=== PATIENT | male | born 1970 | race African-American/Black ===

== ENCOUNTER 2021-06-21 10:09 | Inpatient (IN) | payer OTHER, SELFPAY ==
[2021-06-21 10:44] LABS: #Monocytes 0.3 10x3/uL (0.0-1.1); %Basophils 0.5 % (0.0-2.0); %Eosinophils 0.4 % (0.0-6.0); %Lymphocytes 21.4 % (18.0-47.0); %Monocytes 5.9 % (0.0-10.0); %Neutrophils 71.6 % (40.0-75.0); Hemoglobin 13.3 g/dL (13.5-17.5); Mean Corpuscular HGB CONC 32.6 g/dL (32.0-36.0); Mean Corpuscular Hemoglobin 34.4 pg (27.0-33.0); Mean Corpuscular Volume 105.4 fl (81.2-95.1); Mean Platelet Volume 9.8 fl (7.4-10.4); Platelet Count 238 10x3/uL (150-450); RBC Distribution Width 12.2 % (11.5-14.5); Red Blood Cell (RBC) Count 3.87 10x6/uL (4.32-5.72); White Blood Cell (WBC) Count 5.6 10x3/uL (3.5-10.5)
[2021-06-21 11:11] LABS: ALT (SGPT) 55 U/L (8-55); AST (SGOT) 43 U/L (5-34); Albumin 3.8 g/dL (3.5-5.0); Alkaline Phosphatase 67 U/L (40-110); Anion Gap 14 mmol/L (10-20); BUN (Urea Nitrogen) 17 mg/dL (8.4-25.7); Bilirubin, Total 0.6 mg/dL (0.2-1.2); Calc. Creatinine Clearance 0 mL/min (70-130); Carbon Dioxide 26 mmol/L (22-29); Chloride 106 mmol/L (98-107); Globulin 2.5 g/dL (2.4-3.5); Glucose 110 mg/dL (70-105); Lipase 13 U/L (8-78); Potassium 4.8 mmol/L (3.5-5.1); Protein, Total 6.3 g/dL (6.0-8.3); Sodium 141 mmol/L (136-145)
[2021-06-21 11:49] LABS: Macrocytosis SLIGHT = 6-15 cells (100X) (0-5/hpf)
[2021-06-21 11:50] LABS: Platelet Morphology Comment Appears Adequate
[2021-06-21] MEDS ORDERED: Aspirin Chewable 81 MG TAB ONE (12:13)
[2021-06-21] MEDS ORDERED: Furosemide 40 MG TAB ONE (12:13)
[2021-06-21] MEDS ORDERED: Guaifenesin DM 100-10/5 ML UDCUP PO PRN (12:49)
[2021-06-21] MEDS ORDERED: Nicotine 14 MG PATCH TD SCH (13:00)
[2021-06-21 13:37] LABS: Magnesium 1.9 mg/dL (1.6-2.6)
[2021-06-21 13:40] LABS: Troponin I 0.049 ng/mL (< 0.028)
[2021-06-21] MEDS ORDERED: hydrALAZINE 20 MG/ML VIAL SLOW IVP PRN (13:55)
[2021-06-21] MEDS ORDERED: Labetalol HCl 100 MG/20 ML VIAL SLOW IVP PRN (13:55)
[2021-06-21 14:25] VITALS: BMI 25.1
[2021-06-21] MEDS: Furosemide 20 MG/2 ML VIAL SLOW IVP SCH (15:31)
[2021-06-21 18:03] LABS: Troponin I 0.045 ng/mL (< 0.028)
[2021-06-21] MEDS: Acetaminophen 325 MG TAB PO PRN (21:51)
[2021-06-22 04:31] LABS: #Eosinphils 0.1 10x3/uL (0.0-0.5); #Monocytes 0.4 10x3/uL (0.0-1.1); %Basophils 0.6 % (0.0-2.0); %Eosinophils 1.7 % (0.0-6.0); %Lymphocytes 36.5 % (18.0-47.0); %Monocytes 6.8 % (0.0-10.0); %Neutrophils 54.2 % (40.0-75.0); Hemoglobin 13.2 g/dL (13.5-17.5); Mean Corpuscular HGB CONC 32.8 g/dL (32.0-36.0); Mean Corpuscular Hemoglobin 34.4 pg (27.0-33.0); Mean Corpuscular Volume 104.7 fl (81.2-95.1); Mean Platelet Volume 10.3 fl (7.4-10.4); Platelet Count 264 10x3/uL (150-450); RBC Distribution Width 12.2 % (11.5-14.5); Red Blood Cell (RBC) Count 3.84 10x6/uL (4.32-5.72); White Blood Cell (WBC) Count 5.4 10x3/uL (3.5-10.5)
[2021-06-22 04:46] LABS: Anion Gap 16 mmol/L (10-20); BUN (Urea Nitrogen) 23 mg/dL (8.4-25.7); Calc. Creatinine Clearance 70 mL/min (70-130); Calcium 8.6 mg/dL (7.8-10.44); Carbon Dioxide 25 mmol/L (22-29); Chloride 104 mmol/L (98-107); Glucose 101 mg/dL (70-105); Magnesium 1.7 mg/dL (1.6-2.6); Potassium 4.4 mmol/L (3.5-5.1); Sodium 141 mmol/L (136-145)
[2021-06-22] MEDS: Furosemide 20 MG/2 ML VIAL SLOW IVP SCH ×2 (06:42→14:46)
[2021-06-22] MEDS: Aspirin 81 mg Enteric Coated Tablet PO SCH (08:09)
[2021-06-22] MEDS ORDERED: Lidocaine 1% PF 5 ML VIAL ONE (09:10)
[2021-06-22] MEDS ORDERED: Heparin 10,000 UNITS/ 10 ML VIAL ONE (09:11)
[2021-06-22] MEDS ORDERED: Nitroglycerin 50 MG/250 ML BOT 250 ML ONE (09:11)
[2021-06-22] MEDS ORDERED: Sodium Chloride 0.9% 1,000 ML ONE (09:12)
[2021-06-22] MEDS ORDERED: Adenosine 6 MG/2 ML VIAL ONE (09:12)
[2021-06-22] MEDS ORDERED: Verapamil 5 MG/2 ML VIAL ONE (09:12)
[2021-06-22] MEDS ORDERED: Bivalirudin 250 MG VIAL ONE (09:12)
[2021-06-22] MEDS ORDERED: Lisinopril 5 MG TAB PO SCH (09:13)
[2021-06-22] MEDS ORDERED: Communication Order-Pharmacy FS SCH (09:15)
[2021-06-22 09:56] LABS: INR-International Normal Ratio 1.1; PTT 23.6 sec (22.0-33.0); Prothrombin Time 11.6 sec (9.5-12.1)
[2021-06-22] MEDS ORDERED: Magnesium Sulfate 4 GM in Sodium Chloride 0.9% 250 ML 250 ML IVPB SCH (10:00)
[2021-06-22] MEDS ORDERED: Spironolactone 25 MG TAB PO SCH (10:00)
[2021-06-22] MEDS ORDERED: Valsartan 80 MG TAB PO SCH (10:00)
[2021-06-22] MEDS ORDERED: Nitroglycerin 0.4 MG TAB (25 Tab Bottle) SL PRN (10:01)
[2021-06-22] MEDS ORDERED: Acetaminophen/Codeine 30-300mg Tablet PO PRN (10:01)
[2021-06-22] MEDS ORDERED: Sodium Chloride 0.9% 200 ML IV PRN (10:01)
[2021-06-22] MEDS: Sodium Chloride 0.9% 1,000 ML IV SCH (10:29)
[2021-06-22] MEDS: Acetaminophen 325 MG TAB PO PRN ×2 (11:10→15:56)
[2021-06-22 11:15] LABS: Hemoglobin A1c 4.9 % (4.0-6.0)
[2021-06-22 13:53] LABS: SARS-CoV-2 PCR by NAA Not Detected (NotDetected)
[2021-06-22] MEDS: Acetaminophen/Codeine 30-300mg Tablet PO PRN ×2 (16:08→20:16)
[2021-06-22] MEDS: Carvedilol 6.25 MG TAB PO SCH (18:14)
[2021-06-23] MEDS: Sodium Chloride 0.9% 1,000 ML IV SCH (04:00)
[2021-06-23 05:18] LABS: #Eosinphils 0.1 10x3/uL (0.0-0.5); #Monocytes 0.5 10x3/uL (0.0-1.1); %Basophils 0.7 % (0.0-2.0); %Eosinophils 1.6 % (0.0-6.0); %Lymphocytes 36.9 % (18.0-47.0); %Monocytes 8.1 % (0.0-10.0); %Neutrophils 52.4 % (40.0-75.0); Hemoglobin 14.6 g/dL (13.5-17.5); Mean Corpuscular HGB CONC 32.6 g/dL (32.0-36.0); Mean Corpuscular Volume 104.4 fl (81.2-95.1); Mean Platelet Volume 10.1 fl (7.4-10.4); Platelet Count 289 10x3/uL (150-450); RBC Distribution Width 12.1 % (11.5-14.5); Red Blood Cell (RBC) Count 4.29 10x6/uL (4.32-5.72); White Blood Cell (WBC) Count 5.8 10x3/uL (3.5-10.5)
[2021-06-23] MEDS: Furosemide 20 MG/2 ML VIAL SLOW IVP SCH ×2 (05:24→14:50)
[2021-06-23 05:32] LABS: Anion Gap 15 mmol/L (10-20); BUN (Urea Nitrogen) 18 mg/dL (8.4-25.7); Calc. Creatinine Clearance 72 mL/min (70-130); Carbon Dioxide 26 mmol/L (22-29); Chloride 104 mmol/L (98-107); Glucose 123 mg/dL (70-105); Magnesium 2.2 mg/dL (1.6-2.6); Potassium 4.4 mmol/L (3.5-5.1); Sodium 141 mmol/L (136-145)
[2021-06-23] MEDS ORDERED: Spironolactone 25 MG TAB PO SCH (08:00)
[2021-06-23] MEDS: Aspirin 81 mg Enteric Coated Tablet PO SCH (08:47)
[2021-06-23] MEDS: Carvedilol 6.25 MG TAB PO SCH ×2 (08:47→18:03)
[2021-06-23] MEDS ORDERED: Valsartan 80 MG TAB PO SCH (09:00)
[2021-06-23] MEDS: Acetaminophen 325 MG TAB PO PRN (12:45)
[2021-06-23 16:43] VITALS: TEMP 97.4
[2021-06-23 18:03] VITALS: BP 126/99
== END 2021-06-23 19:26 | disposition home or self-care (01) | DRG 286 ==
LOC: CSHERS 10:09 → CSHTELE 13:55 → OBSVTOIN 06-23 08:22
PROVIDERS: ADMIT Internal Medicine; ATTEND Hospitalist
PROC: 4A023N7 Measurement of Cardiac Sampling and Pressure, Left Heart, Percutaneous Approach (ICD-10-PCS; principal; 2021-06-23)
PROC: B2111ZZ Fluoroscopy of Multiple Coronary Arteries using Low Osmolar Contrast (ICD-10-PCS; 2021-06-23)
PROC: B2151ZZ Fluoroscopy of Left Heart using Low Osmolar Contrast (ICD-10-PCS; 2021-06-23)
DX: I11.0 Hypertensive heart disease with heart failure (principal); I50.21 Acute systolic (congestive) heart failure; F17.210 Nicotine dependence, cigarettes, uncomplicated; I25.10 Atherosclerotic heart disease of native coronary artery without angina pectoris; I42.8 Other cardiomyopathies; N28.9 Disorder of kidney and ureter, unspecified; R77.8 Other specified abnormalities of plasma proteins
CPT/HCPCS: 36415; 71045; 80048; 80053; 82553; 83036; 83690; 83735; 83880; 84443; 84484; 85025; 85610; 85730; 93005; 93306; 93458; 94760; 96374; 96375; 96376; 97139; G0378; J0153; J0583; J1644; J1940; J3475; J7050; U0003; U0005

== ENCOUNTER 2022-01-30 06:39 | Emergency (ER) | payer OTHER, SELFPAY ==
[2022-01-30] MEDS ORDERED: Furosemide 40 MG/4 ML VIAL ONE (07:15)
[2022-01-30] MEDS ORDERED: Aspirin Chewable 81 MG TAB ONE (07:15)
[2022-01-30] MEDS ORDERED: Nitroglycerin 2% Ointment 1 INCH/1 GM Packet ONE (07:15)
[2022-01-30 07:34] LABS: #Eosinphils 0.1 10x3/uL (0.0-0.5); #Monocytes 0.3 10x3/uL (0.0-1.1); #Neutrophils 5.2 10x3/uL (1.5-8.4); %Basophils 0.6 % (0.0-2.0); %Eosinophils 1.1 % (0.0-6.0); %Lymphocytes 9.8 % (18.0-47.0); %Monocytes 4.8 % (0.0-10.0); %Neutrophils 83.2 % (40.0-75.0); Hemoglobin 13.2 g/dL (13.5-17.5); Mean Corpuscular HGB CONC 34.1 g/dL (32.0-36.0); Mean Corpuscular Hemoglobin 34.5 pg (27.0-33.0); Mean Platelet Volume 9.9 fl (7.4-10.4); Platelet Count 236 10x3/uL (150-450); RBC Distribution Width 12.1 % (11.5-14.5); Red Blood Cell (RBC) Count 3.83 10x6/uL (4.32-5.72); White Blood Cell (WBC) Count 6.2 10x3/uL (3.5-10.5)
[2022-01-30 07:50] LABS: ALT (SGPT) 33 U/L (8-55); AST (SGOT) 52 U/L (5-34); Albumin 4.2 g/dL (3.5-5.0); Alkaline Phosphatase 82 U/L (40-110); Anion Gap 19 mmol/L (10-20); BUN (Urea Nitrogen) 13 mg/dL (8.4-25.7); Bilirubin, Total 0.6 mg/dL (0.2-1.2); Calc. Creatinine Clearance 0 mL/min (70-130); Carbon Dioxide 19 mmol/L (22-29); Chloride 103 mmol/L (98-107); Globulin 3.1 g/dL (2.4-3.5); Glucose 99 mg/dL (70-105); Potassium 4.3 mmol/L (3.5-5.1); Protein, Total 7.3 g/dL (6.0-8.3); Sodium 137 mmol/L (136-145)
[2022-01-30 08:06] LABS: CKMB 3.6 ng/mL (0-6.6)
[2022-01-30 08:32] LABS: SARS-CoV-2 NAA Rapid Test DETECTED (NotDetected)
[2022-01-30 09:20] LABS: Bilirubin Neg (Negative); Blood, Urine Negative (Negative); Clarity Clear (Clear); Glucose, Urine (Dipstick) Normal (Negative); Ketone, Urine Negative (Negative); Leukocyte Negative (Negative); Nitrite Negative (Negative); Protein, Urine (Dipstick) Negative (Neg-Trace); Specific Gravity, Urine 1.005 (1.002-1.036); Urobilinogen Normal mg/dL (Less than 2)
== END 2022-01-30 10:01 | disposition short-term general hospital (02) ==
LOC: CSHERS 06:39
DX: U07.1 COVID-19 (principal); I11.0 Hypertensive heart disease with heart failure; I50.9 Heart failure, unspecified; F17.210 Nicotine dependence, cigarettes, uncomplicated
CPT/HCPCS: 71045; 80053; 81003; 82553; 83605; 83880; 84484; 85025; 87040; 93005; 96374; J1940

== ENCOUNTER 2023-04-11 13:54 | Inpatient (IN) | payer SELFPAY ==
[2023-04-11 14:39] LABS: #Monocytes 0.5 10x3/uL (0.0-1.1); #Neutrophils 5.6 10x3/uL (1.5-8.4); %Basophils 0.5 % (0.0-2.0); %Eosinophils 0.5 % (0.0-6.0); %Lymphocytes 27.4 % (18.0-47.0); %Monocytes 5.5 % (0.0-10.0); %Neutrophils 65.9 % (40.0-75.0); Hematocrit 41.4 % (38.8-50.0); Hemoglobin 13.7 g/dL (13.5-17.5); Mean Corpuscular HGB CONC 33.1 g/dL (32.0-36.0); Mean Corpuscular Hemoglobin 34.6 pg (27.0-33.0); Mean Corpuscular Volume 104.5 fl (81.2-95.1); Mean Platelet Volume 9.5 fl (7.4-10.4); Platelet Count 280 10x3/uL (150-450); RBC Distribution Width 12.6 % (11.5-14.5); Red Blood Cell (RBC) Count 3.96 10x6/uL (4.32-5.72); White Blood Cell (WBC) Count 8.4 10x3/uL (3.5-10.5)
[2023-04-11 15:05] LABS: ALT (SGPT) 65 U/L (8-55); AST (SGOT) 94 U/L (5-34); Albumin 4.2 g/dL (3.5-5.0); Alkaline Phosphatase 89 U/L (40-110); Anion Gap 18 mmol/L (10-20); BUN (Urea Nitrogen) 22 mg/dL (8.4-25.7); Bilirubin, Total 0.7 mg/dL (0.2-1.2); Calc. Creatinine Clearance 0 mL/min (70-130); Calcium 9.1 mg/dL (7.8-10.44); Carbon Dioxide 16 mmol/L (22-29); Chloride 107 mmol/L (98-107); Estimated GFR 55; Globulin 2.8 g/dL (2.4-3.5); Glucose 94 mg/dL (70-105); Potassium 5.5 mmol/L (3.5-5.1); Sodium 135 mmol/L (136-145)
[2023-04-11 15:06] LABS: Troponin I 0.057 ng/mL (< 0.028)
[2023-04-11] MEDS ORDERED: Furosemide 40 MG/4 ML VIAL ONE (17:44)
[2023-04-11] MEDS ORDERED: Acetaminophen 325 MG TAB PO PRN (19:03)
[2023-04-11] MEDS ORDERED: Guaifenesin DM 100-10/5 ML UDCUP PO PRN (19:03)
[2023-04-11] MEDS ORDERED: Senokot S 8.6-50 MG TAB PO PRN (19:03)
[2023-04-11] MEDS ORDERED: Calcium Carbonate 500 MG ChewTAB PO PRN (19:03)
[2023-04-11] MEDS ORDERED: Ondansetron PF 4 MG/2 ML Vial IVP PRN (19:03)
[2023-04-11 20:39] VITALS: BMI 24.3
[2023-04-11] MEDS ORDERED: LOKELMA 10 GM PACKET PO SCH (21:00)
[2023-04-11 23:21] LABS: Troponin I 0.057 ng/mL (< 0.028)
[2023-04-12 05:48] LABS: ALT (SGPT) 58 U/L (8-55); AST (SGOT) 57 U/L (5-34); Albumin 3.7 g/dL (3.5-5.0); Alkaline Phosphatase 74 U/L (40-110); Bilirubin, Total 0.8 mg/dL (0.2-1.2); Protein, Total 6.5 g/dL (6.0-8.3)
[2023-04-12 05:49] LABS: Anion Gap 15 mmol/L (10-20); BUN (Urea Nitrogen) 19 mg/dL (8.4-25.7); Bilirubin, Direct 0.3 mg/dL (0.1-0.3); Calc. Creatinine Clearance 73 mL/min (70-130); Calcium 8.9 mg/dL (7.8-10.44); Carbon Dioxide 22 mmol/L (22-29); Cardiac Risk 3.7 (Less than 4.5); Chloride 105 mmol/L (98-107); Cholesterol 141 mg/dl (< 200 Desired); Estimated GFR 65; Glucose 136 mg/dL (70-105); HDL Cholesterol 38 mg/dL (>60 Neg Risk); LDL Cholesterol, Calculated 80 mg/dL; Potassium 3.9 mmol/L (3.5-5.1); Sodium 138 mmol/L (136-145); Triglycerides 117 mg/dL (Less than 150)
[2023-04-12] MEDS ORDERED: Carvedilol 6.25 MG TAB PO SCH (08:00)
[2023-04-12] MEDS: Aspirin 81 mg Enteric Coated Tablet PO SCH (08:57)
[2023-04-12] MEDS: Valsartan 80 MG TAB PO SCH (08:57)
[2023-04-12] MEDS ORDERED: Spironolactone 25 MG TAB PO SCH (09:00)
[2023-04-12] MEDS ORDERED: Furosemide 40 MG/4 ML VIAL SLOW IVP SCH (09:00)
[2023-04-12] MEDS ORDERED: Carvedilol 12.5 MG TAB PO SCH (12:15)
[2023-04-12] MEDS ORDERED: Magnesium 2 GM/50 ML(in water) 2 GM in Premix Bag 1 BAG IVPB SCH (12:15)
[2023-04-12] MEDS: Carvedilol 12.5 MG TAB PO SCH (18:48)
[2023-04-13 04:24] LABS: Troponin I 0.197 ng/mL (< 0.028)
[2023-04-13] MEDS ORDERED: Furosemide 40 MG/4 ML VIAL SLOW IVP SCH (06:00)
[2023-04-13 07:42] LABS: #Eosinphils 0.2 10x3/uL (0.0-0.5); #Monocytes 0.5 10x3/uL (0.0-1.1); #Neutrophils 3.3 10x3/uL (1.5-8.4); %Basophils 0.7 % (0.0-2.0); %Eosinophils 2.8 % (0.0-6.0); %Lymphocytes 34.2 % (18.0-47.0); %Monocytes 7.4 % (0.0-10.0); %Neutrophils 54.6 % (40.0-75.0); Hematocrit 46.1 % (38.8-50.0); Hemoglobin 15.5 g/dL (13.5-17.5); Mean Corpuscular HGB CONC 33.6 g/dL (32.0-36.0); Mean Corpuscular Hemoglobin 34.9 pg (27.0-33.0); Mean Corpuscular Volume 103.8 fl (81.2-95.1); Mean Platelet Volume 9.9 fl (7.4-10.4); Platelet Count 326 10x3/uL (150-450); RBC Distribution Width 12.3 % (11.5-14.5); Red Blood Cell (RBC) Count 4.44 10x6/uL (4.32-5.72); White Blood Cell (WBC) Count 6.1 10x3/uL (3.5-10.5)
[2023-04-13 07:52] LABS: ALT (SGPT) 56 U/L (8-55); AST (SGOT) 42 U/L (5-34); Albumin 3.9 g/dL (3.5-5.0); Alkaline Phosphatase 75 U/L (40-110); Anion Gap 16 mmol/L (10-20); BUN (Urea Nitrogen) 22 mg/dL (8.4-25.7); Bilirubin, Total 0.8 mg/dL (0.2-1.2); Calc. Creatinine Clearance 62 mL/min (70-130); Calcium 9.7 mg/dL (7.8-10.44); Carbon Dioxide 25 mmol/L (22-29); Chloride 103 mmol/L (98-107); Estimated GFR 54; Globulin 3.2 g/dL (2.4-3.5); Glucose 126 mg/dL (70-105); Potassium 4.1 mmol/L (3.5-5.1); Protein, Total 7.1 g/dL (6.0-8.3); Sodium 140 mmol/L (136-145)
[2023-04-13] MEDS ORDERED: Spironolactone 25 MG TAB PO SCH (08:00)
[2023-04-13] MEDS ORDERED: Furosemide 20 MG TAB PO SCH (09:00)
[2023-04-13] MEDS: Valsartan 80 MG TAB PO SCH (09:39)
[2023-04-13] MEDS: Carvedilol 12.5 MG TAB PO SCH (09:39)
[2023-04-13] MEDS: Aspirin 81 mg Enteric Coated Tablet PO SCH (09:39)
[2023-04-13 09:43] VITALS: BP 129/99; TEMP 97.7
== END 2023-04-13 11:21 | disposition home or self-care (01) | DRG 291 ==
LOC: CSHERS 13:54 → CSHTELE 19:55
PROVIDERS: ADMIT Student in an Organized Health Care Education/Training Program; ATTEND Internal Medicine
DX: I13.0 Hypertensive heart and chronic kidney disease with heart failure and stage 1 through stage 4 chronic kidney disease, or unspecified chronic kidney disease (principal); I50.23 Acute on chronic systolic (congestive) heart failure; I42.8 Other cardiomyopathies; E78.5 Hyperlipidemia, unspecified; I34.0 Nonrheumatic mitral (valve) insufficiency; N18.30 Chronic kidney disease, stage 3 unspecified; F17.210 Nicotine dependence, cigarettes, uncomplicated; R77.8 Other specified abnormalities of plasma proteins; E87.5 Hyperkalemia; R74.01 Elevation of levels of liver transaminase levels; I25.10 Atherosclerotic heart disease of native coronary artery without angina pectoris; F12.10 Cannabis abuse, uncomplicated; Z91.148 Patient's other noncompliance with medication regimen for other reason; Z79.82 Long term (current) use of aspirin; Z79.899 Other long term (current) drug therapy; Z82.49 Family history of ischemic heart disease and other diseases of the circulatory system; Z71.6 Tobacco abuse counseling
CPT/HCPCS: 36415; 71045; 80048; 80053; 80061; 80076; 83735; 83880; 84443; 84484; 85025; 93005; 93306; 96374; J1650; J1940; J3475

== ENCOUNTER 2025-03-23 17:14 | Emergency (ER) | payer SELFPAY ==
[2025-03-23 18:07] LABS: Anion Gap 13 mmol/L (10-20); BUN (Urea Nitrogen) 31 mg/dL (8.4-25.7); Calc. Creatinine Clearance 0 mL/min (70-130); Calcium 8.6 mg/dL (7.8-10.44); Carbon Dioxide 22 mmol/L (22-29); Chloride 109 mmol/L (98-107); Glucose 87 mg/dL (70-105); Potassium 4.1 mmol/L (3.5-5.1); Sodium 140 mmol/L (136-145)
== END 2025-03-23 18:15 | disposition home or self-care (01) ==
LOC: CSHERS 17:14
DX: T63.461A Toxic effect of venom of wasps, accidental (unintentional), initial encounter (principal); I13.0 Hypertensive heart and chronic kidney disease with heart failure and stage 1 through stage 4 chronic kidney disease, or unspecified chronic kidney disease; I50.20 Unspecified systolic (congestive) heart failure; N18.9 Chronic kidney disease, unspecified; F17.210 Nicotine dependence, cigarettes, uncomplicated
CPT/HCPCS: 36415; 80048; 99283